=== PATIENT | male | born 1935 | race Caucasian/White ===

== ENCOUNTER → 2017-03-19 | Outpatient (CLI) | payer MEDICARE, OTHER ==
[~2017-03-19] MED LIST: ACET-3088 PO; AMLO5TAB2 PO; CALC1TAB PO; CHOL20002 PO; DIPH25TA56 PO; MULT-806 PO; PRED5TAB PO; RANI-197 PO; SIMV10TA76 PO; SOTA80TA PO; TAMS0.4C47 PO; TRAM50TA4 PO
== END ==
LOC: LAB 09:31
PROVIDERS: ATTEND Urology
DX: C61 Malignant neoplasm of prostate (principal)
CPT/HCPCS: 36415; 84403

== ENCOUNTER → 2017-06-07 18:47 | Observation (INO) ==
[2017-06-05] MEDS: D5NS 1,000 ML IV SCH (13:29)
[2017-06-05] MEDS: TRAMADOL 50 MG TABLET PO SCH ×3 (16:26→22:31)
[2017-06-05] MEDS: MIRABEGRON 25mg TABLET PO SCH (19:54)
[2017-06-05] MEDS: HYDROMORPHONE 2 MG/ML INJECTION IVP PRN (20:26)
[2017-06-05] MEDS: RANITIDINE 150 MG TABLET PO SCH (21:00)
[2017-06-05] MEDS: POM TAMSULOSIN 0.4 MG CAPSULE PO SCH (22:00)
[2017-06-06] MEDS: HYDROMORPHONE 2 MG/ML INJECTION IVP PRN ×5 (01:10→20:34)
[2017-06-06] MEDS: TRAMADOL 50 MG TABLET PO SCH ×5 (03:00→20:35)
[2017-06-06] MEDS: SOTALOL 80 MG PO SCH ×2 (06:30→17:37)
[2017-06-06] MEDS: DIPHENHYDRAMINE 25 MG PO SCH ×3 (07:02→23:50)
[2017-06-06] MEDS: D5NS 1,000 ML IV SCH ×2 (08:41→21:50)
[2017-06-06] MEDS: MIRABEGRON 25mg TABLET PO SCH (09:49)
[2017-06-06] MEDS: MULTI-VITAMIN PLAIN TABLET PO SCH (09:49)
[2017-06-06] MEDS: POM PredniSONE 5 MG TABLET PO SCH (09:51)
[2017-06-06] MEDS: VIT D PO SCH (09:51)
[2017-06-06] MEDS: CALCIUM PO SCH (09:51)
[2017-06-06] MEDS: CHOLECALCIFEROL 5000 UNIT PO SCH (09:51)
[2017-06-06] MEDS: RANITIDINE 150 MG TABLET PO SCH ×2 (09:53→20:35)
[2017-06-06] MEDS: CYANOCOBALAMIN (B-12) 1,000mcg/ml INJECTION IM SCH (09:57)
--- NOTE | 2017-06-06 13:29 | Internal Med History&Physical ---
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 He was seen at the oncologist office for evaluation and found to be quite lethargic with severe bone pain. At that point Dr. Stewart contacted me to admit the patient for blood transfusion and pain control. The patient was agreeable so we made him a direct admit for 23 hour observation. He was complaining of presyncope symptoms and significant lower abdominal pain as well as pain in the pelvic girdle and femurs as well as lumbar spine. Review of Systems - Constitutional Constitutional: Present: anorexia, daytime sleepiness, fatigue, lethargy, malaise, weakness, weight loss - EENMT Eyes: Present: requires corrective lenses Ears: Absent: ear discharge, ear pain Nose: Absent: change in smell Mouth/Throat: Absent: pain, sore throat, changes in swallowing, painful swallowing - Cardiovascular Cardiovascular: Present: dyspnea on exertion. Absent: chest pain, palpitations Vascular: Absent: Raynaud's, atrophy, intermittent claudication, pedal edema - Respiratory Respiratory: Present: dyspnea, dyspnea on exertion. Absent: cough - Gastrointestinal Gastrointestinal: Present: abdominal pain, early satiety. Absent: diarrhea, dysphagia, hematemesis, hematochezia, melena - Genitourinary Genitourinary: Present: difficulty urinating, dysuria, hematuria, urinary urgency - Musculoskeletal Musculoskeletal: Present: arthralgias Musculoskeletal Comments: Severe bone pain - Integumentary/Breasts Integumentary: Present: other (pale). Absent: change in pigmentation, changing lesions, erythema, pruritus - Neurological Neurological: Present: abnormal gait, weakness - Psychiatric Psychiatric: Absent: depression, hopelessness, panic attacks, visual hallucinations - Endocrine Endocrine: Present: cold intolerance. Absent: palpitations, polydipsia, polyphagia - Hematologic/Lymphatic Hematologic/Lymphatic: Present: easy bleeding. Absent: lymphadenopathy - Allergic/Immunologic Allergic/Immunologic: Absent: tongue swelling, itchy eyes, seasonal rhinorrhea [facility] Patient Stated Medical History Cataracts Yes: SURGERY Cardiac Arrhythmia Yes Coronary Artery Disease Yes: HTN Myocardial Infarction Yes Other Cardiology Yes: STENT Other Yes: PROBABLY BLADDER SPASMS Anemia Yes Other Musculoskeletal Yes: POLYARTHRITIS Blood Transfusions Yes Chemotherapy Yes Surgical History: Parul 01/2007, Prostatectomy 01/10 Family History: HTN, Hyperlipidemia, CAD - Social History Smoking status: Never smoker Substance use type: does not use Alcohol intake: never Alcohol intake frequency: does not drink Housing: house Household members: spouse Current occupational status: retired Current residence: Apartment/Private Home Medications Home Medications Medication Instructions Recorded Confirmed Type Multivitamins (Multivitamin) 1 tab PO DAILY #0 01/14/13 06/05/17 History diphenhydrAMINE HCl [Benadryl 25 mg PO BID #0 01/14/13 06/05/17 History Allergy] raNITIdine HCl [Ranitidine HCl] 150 mg PO BID #0 01/14/13 06/05/17 History Acetaminophen [Tylenol Arthritis] 1 tab PO Q6H PRN #0 tab 10/24/16 06/05/17 History Calcium Carbonate/Vitamin D3 600 tab PO DAILY #0 10/24/16 06/05/17 History [Caltrate 600 Plus D3 Tablet] Cholecalciferol (Vitamin D3) 5,000 unit PO DAILY #0 10/24/16 06/05/17 History [Vitamin D3] Sotalol HCl [Sotalol] 80 mg PO ACBID #0 tab 10/24/16 06/05/17 History Tamsulosin HCl 0.4 mg PO HS #0 cap 10/24/16 06/05/17 History Tramadol HCl 50 mg PO Q6HR #0 tab 10/24/16 06/05/17 History predniSONE [Prednisone] 5 mg PO BIDWM #0 tab 10/24/16 06/05/17 History Cyanocobalamin (B-12) [Vit. B-12] 1,000 mcg IM Q1D 06/05/17 06/05/17 History Allergies Allergy/AdvReac Type Severity Reaction Status Date / Time No Known Allergies Allergy Verified 06/05/17 13:07 Exam Vital signs: Temperature 98.9 F 06/06/17 07:35 Pulse Rate 114 H 06/06/17 07:35 Respiratory Rate 18 06/06/17 07:35 Blood Pressure 110/65 06/06/17 07:35 Pulse Oximetry 100 06/06/17 07:35 Oxygen Delivery Method Room Air - Constitutional moderate distress - Routine HEENT Exam Head: Present: normocephalic, atraumatic Eye: Present: EOMI, PERRL. Absent: conjunctival icterus, scleral injection, conjunctivae pink (pale) ENT: Present: mucous membranes dry, oropharynx clear. Absent: sinus tenderness Nose: dry mucous membranes Throat: normal inspection - Routine Neck Exam Present: supple, full ROM. Absent: JVD, carotid bruit, lymphadenopathy, thyromegaly, tenderness - Routine Chest/Breast/Axilla Exam Chest wall: Absent: tenderness Axillae: Absent: lymphadenopathy - Routine Respiratory Exam Present: decreased breath sounds, distant breath sounds. Absent: accessory muscle use - Routine Cardiovascular Exam Present: RRR, no murmur. Absent: S3, S4 - Routine Abdominal Exam Present: soft, normoactive bowel sounds, tenderness. Absent: distended, rebound , guarding, rigid - Routine Exam Penile: Absent: swelling, erythema, lesions - Routine Extremities Exam Present: edema (ight leg). Absent: cyanosis, clubbing - Routine Neurological Exam Present: oriented X3, CN II-XII intact, moving all extremities. Absent: alert, nystagmus, tremors - Routine Psychiatric Exam Present: normal affect, normal thought process, cooperative, good insight, good judgment. Absent: depressed, anxious, agitated Internal Medicine Results - Labs CBC & Chem 7: 06/06/17 04:58 06/06/17 04:58 Labs: Short CBC 06/05/17 06/06/17 Range/Units 23:20 04:58 WBC 3.6 L (4.5-11.0) T/MM3 Hgb 9.8 L D 9.6 L (13.5-17.5) GM/DL Hct 30.5 L D (41-53) % Plt Count 106 L (130-400) T/MM3 [facility] 06/06/17 04:58 Sodium 133 L Potassium 5.3 H Chloride 102 Carbon Dioxide 24 BUN 27.0 H Creatinine 1.0 Glucose 119 H Calcium 6.2 L Liver Function 06/06/17 Range/Units 04:58 Total Bilirubin 0.70 (0.20-1.30) MG/DL AST 60 H (17-59) U/L ALT 27 (21-72) U/L Alkaline Phosphatase 712 H (38-126) U/L Albumin 2.7 L (3.5-5.0) G/DL Hgb = 9.6 after transfusion Assessment and Plan (1) Pain from bone metastases Current visit: Yes Status: Acute Narcotics given (2) Prostate cancer metastatic to bone Current visit: Yes Status: Acute (3) Severe anemia Current visit: Yes Status: Acute Transfusion Sepsis Assessment - Evaluation Sepsis screening result: No Definite Risk
[2017-06-06] MEDS: ACETAMINOPHEN 650 MG PO PRN (14:51)
--- NOTE | 2017-06-06 15:50 | Consultation ---
UROLOGY CONSULTATION DATE OF CONSULTATION 06/06/2017 REASON FOR CONSULTATION Difficult catheter placement, urinary retention. PHYSICIAN REQUESTING CONSULT Efra Sharp DO HISTORY Mr. Goncalves is an 82-year-old gentleman whom I have known for over a year who presented with advanced prostate cancer and became castrate-resistant prostate cancer. He failed Zytiga and then . He went on to _?Taxotere? chemotherapy and he has failed this. He has come off the chemotherapy 3-4 weeks ago. He has had intermittent hematuria in the past from the prostate cancer. Recently has had difficulty voiding and his who is a retired nurse , catheterized him at home with a #10 [place] catheter. He was admitted to the hospital for dehydration and weakness. They tried to pass a catheter and were unable to and he is unable to void. PAST MEDICAL HISTORY Metastatic hormone refractory prostate cancer. MEDICATIONS/ALLERGIES/FAMILY HISTORY/SOCIAL HISTORY All reviewed from the H&P and the medical record. REVIEW OF SYSTEMS Notable for fatigue, weakness, hematuria, difficulty voiding. PHYSICAL EXAM VITAL SIGNS: Noted on the electronic medical record. HEENT: Normocephalic. GENERAL: Alert, pleasant male. He appears fatigued. PULMONARY: Nonlabored respirations. CARDIOVASCULAR: Regular rate. ABDOMEN: Soft but he is tender in the suprapubic region. : His phallus is uncircumcised. Meatus is normal. Testes descended and soft. EXTREMITIES: No clubbing or cyanosis. SKIN: No rashes. PSYCH; Normal mood and affect. PROCEDURE I prepped his genitalia with Betadine. I instilled some lubricant per urethra. I am able to negotiate a #18 [place] catheter. I met mild to moderate resistance of the prostate and so with him relaxing and gentle pressure, I am able to negotiate through the firm prostate. I had to flush to initially get it to drain, then it begins draining old bloody urine. It is set to gravity drainage and a few hundred mL began to drain with some small clots. ASSESSMENT 1. 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 2. Gross hematuria. 3. Urinary retention. PLAN At this point, he has failed multiple therapies and his disease continues to progress. I think it is likely that his retention will be permanent. As he is becoming more debilitated I think it is most reasonable to just leave the catheter in place and change it on a monthly basis. YOSEPH
--- NOTE | 2017-06-06 18:32 | Internal Med Progress Note ---
Internal Medicine Subjective Patient seen and examined. Transfusion received. He is feeling some better, yet still lightheaded and lethargic. Nursing was unable to place bass this morning so Dr. Rosa was consulted. Catheter was placed without complication. Post transfusion Hgb = 8.2. He has dark blood in the bass urine bag. Exam Vital Signs: Temperature 96.7 F L 06/06/17 15:35 Pulse Rate 83 06/06/17 17:37 Respiratory Rate 16 06/06/17 15:35 Blood Pressure 94/58 06/06/17 17:30 Pulse Oximetry 97 06/06/17 15:35 Oxygen Delivery Method Room Air Height: 6 ft Weight: 62.7 kg Body Mass Index: 18.6 - Constitutional Present: mild distress - Routine HEENT Exam Head: Present: normocephalic, atraumatic Eye: Present: EOMI, PERRL, conjunctivae pink. Absent: conjunctival icterus, scleral injection ENT: Present: mucous membranes dry, oropharynx clear, nares patent - Routine Neck Exam Present: supple, full ROM. Absent: JVD, carotid bruit, lymphadenopathy, thyromegaly - Routine Respiratory Exam Absent: accessory muscle use, dyspnea, rales, respiratory distress, rhonchi, stridor, wheezes - Routine Cardiovascular Exam Present: RRR. Absent: S3, S4 - Routine Abdominal Exam Present: soft, tenderness (suprapubic). Absent: distended, guarding, rigid - Routine Extremities Exam Present: edema. Absent: cyanosis, clubbing, calf tenderness - Routine Skin Exam Present: intact. Absent: cyanosis, erythema, mottling, petechiae, urticaria, jaundice - Routine Neurological Exam Present: oriented X3, CN II-XII intact, moving all extremities. Absent: alert - Routine Psychiatric Exam Present: cooperative, good judgment. Absent: normal affect (lethargic) Internal Medicine Results - Labs CBC & Chem 7: 06/06/17 17:57 06/06/17 04:58 Labs: Short CBC 06/05/17 06/06/17 06/06/17 Range/Units 23:20 04:58 17:57 WBC 3.6 L 5.5 D (4.5-11.0) T/MM3 Hgb 9.8 L D 9.6 L 8.2 L D (13.5-17.5) GM/DL Hct 30.5 L D 26.0 L D (41-53) % Plt Count 106 L 82 L (130-400) T/MM3 BMP 06/06/17 04:58 Sodium 133 L Potassium 5.3 H Chloride 102 Carbon Dioxide 24 BUN 27.0 H Creatinine 1.0 Glucose 119 H Calcium 6.2 L Liver Function 06/06/17 Range/Units 04:58 Total Bilirubin 0.70 (0.20-1.30) MG/DL AST 60 H (17-59) U/L ALT 27 (21-72) U/L Alkaline Phosphatase 712 H (38-126) U/L Albumin 2.7 L (3.5-5.0) G/DL Progress Note-A&P (1) Pain from bone metastases Status: Acute Current Visit: Yes (2) Prostate cancer metastatic to bone Status: Acute Current Visit: Yes (3) Severe anemia Status: Acute Assessment and plan: He has received 2 units PRBCs. I will transfuse 2 more units tonight with the hopes of DC to home tomorrow. Current Visit: Yes (4) Hypotensive episode Status: Acute Current Visit: Yes - Time Spent With Patient Total time spent is greater than 50% in coordination of care (as documented) at patient's floor/unit and/or counseling patient: 25 - 35 minutes Sepsis Assessment - Evaluation Sepsis screening result: No Definite Risk Hospital Course Summary Disclaimer: The visit summary below is not to be considered part of the above Progress Note. Hospital Course: 06/06/17 18:36 Patient has symptomatic anemia and metastatic bone pain secondary to prostate ca.
[2017-06-06 18:43] VITALS: BMI 18.7
[2017-06-06] MEDS: POM TAMSULOSIN 0.4 MG CAPSULE PO SCH (22:00)
[2017-06-07] MEDS: HYDROMORPHONE 2 MG/ML INJECTION IVP PRN ×3 (00:57→12:10)
[2017-06-07] MEDS: TRAMADOL 50 MG TABLET PO SCH ×3 (03:05→16:03)
[2017-06-07] MEDS: ACETAMINOPHEN 650 MG PO PRN (04:05)
[2017-06-07] MEDS: D5NS 1,000 ML IV SCH (06:04)
[2017-06-07] MEDS: SOTALOL 80 MG PO SCH ×2 (07:31→16:55)
[2017-06-07] MEDS: MIRABEGRON 25mg TABLET PO SCH (09:22)
[2017-06-07] MEDS: RANITIDINE 150 MG TABLET PO SCH (09:22)
[2017-06-07] MEDS: MULTI-VITAMIN PLAIN TABLET PO SCH (09:22)
[2017-06-07] MEDS: CHOLECALCIFEROL 5000 UNIT PO SCH (09:23)
[2017-06-07] MEDS: VIT D PO SCH (09:24)
[2017-06-07] MEDS: CALCIUM PO SCH (09:24)
[2017-06-07] MEDS: DIPHENHYDRAMINE 25 MG PO SCH (09:24)
[2017-06-07] MEDS: POM PredniSONE 5 MG TABLET PO SCH (09:26)
[2017-06-07] MEDS: CYANOCOBALAMIN (B-12) 1,000mcg/ml INJECTION IM SCH (10:36)
[2017-06-07 15:24] VITALS: BP 108/65; RESP 16; TEMP 96.8; O2SAT 98
[2017-06-07 16:56] VITALS: PULSE 82
--- NOTE | 2017-06-07 17:43 | Discharge Instructions ---
Discharge Plan - Med Rec/Dispo Andres Instructions: Dehydration (GEN) Prescriptions: New Mirabegron [Myrbetriq] 50 mg PO DAILY #30 tablet Continue Multivitamins (Multivitamin) 1 tab PO DAILY #0 Calcium Carbonate/Vitamin D3 [Caltrate 600 Plus D3 Tablet] 600 tab PO DAILY # 0 Tramadol HCl 50 mg PO Q6HR #0 tab Acetaminophen [Tylenol Arthritis] 1 tab PO Q6H PRN #0 tab PRN Reason: PAIN predniSONE [Prednisone] 5 mg PO BIDWM #0 tab Cyanocobalamin (B-12) [Vit. B-12] 1,000 mcg IM Q1D raNITIdine HCl [Ranitidine HCl] 150 mg PO BID #0 diphenhydrAMINE HCl [Benadryl Allergy] 25 mg PO BID #0 Tamsulosin HCl 0.4 mg PO HS #0 cap Cholecalciferol (Vitamin D3) [Vitamin D3] 5,000 unit PO DAILY #0 Sotalol HCl [Sotalol] 80 mg PO ACBID #0 tab - Disposition 01 Discharged Home, Self-Care
--- NOTE | 2017-06-07 17:47 | Discharge Summary ---
Discharge Information Date of admission: 06/05/17 11:27 Attending Physician: Efra Sharp DO Primary care physician: Efra Sharp DO Consults: 06/05/17 11:55 Physician Consult [CONS] Routine Consulting Provider: Kit Stewart Reason For Exam: metastatic prostate cancer Ordering Provider has Notified Investigator Vice: Yes 06/05/17 12:10 Dietary Consult [CONS] Routine Comment: Reason For Exam: 06/06/17 07:19 Physician Consult [CONS] Routine Consulting Provider: Mac Rosa Reason For Exam: bass placement Ordering Provider has Notified Investigator Vice: No 06/06/17 08:32 W[facility] Consult [CONS] Routine - Discharge Diagnosis (1) Pain from bone metastases Status: Acute (2) Prostate cancer metastatic to bone Status: Chronic (3) Severe anemia Status: Acute (4) Hypotensive episode Status: Acute - Laboratory Labs: 06/07/17 05:40 06/06/17 04:58 History of Present Illness HPI: Heath is a very pleasant 82-year-old white male who is well-known to me through our practice at [facility]. He was seen at the oncologist office for evaluation and found to be quite lethargic with severe bone pain. At that point Dr. Stewart contacted me to admit the patient for blood transfusion and pain control. The patient was agreeable so we made him a direct admit for 23 hour observation. He was complaining of presyncope symptoms and significant lower abdominal pain as well as pain in the pelvic girdle and femurs as well as lumbar spine. Hospital Course This is a general summary of the patient's hospital course. For more details refer to the complete medical record. Hospital course: 06/06/17 18:36 Patient has symptomatic anemia and metastatic bone pain secondary to prostate ca. 06/07/17 Heath was given a total of 4 units of packed red blood cells leuko-reduced and irradiated. His blood pressure is better at this time. His bone pain is better controlled with a higher dose of Dilaudid. He even has a little more appetite. I am going to send him home with his Bass catheter intact. He has a follow-up appointment with urology, Dr. Rosa, on Saturday. He is stable for discharge. Questions answered. Time spent with patient: 25 - 35 minutes DVT Prophylaxis: SCD's GI Prophylaxis: other Discharge Plan - Med Rec/Dispo Andres Instructions: Dehydration (GEN) Prescriptions: New Mirabegron [Myrbetriq] 50 mg PO DAILY #30 tablet Continue Multivitamins (Multivitamin) 1 tab PO DAILY #0 Calcium Carbonate/Vitamin D3 [Caltrate 600 Plus D3 Tablet] 600 tab PO DAILY # 0 Tramadol HCl 50 mg PO Q6HR #0 tab Acetaminophen [Tylenol Arthritis] 1 tab PO Q6H PRN #0 tab PRN Reason: PAIN predniSONE [Prednisone] 5 mg PO BIDWM #0 tab Cyanocobalamin (B-12) [Vit. B-12] 1,000 mcg IM Q1D raNITIdine HCl [Ranitidine HCl] 150 mg PO BID #0 diphenhydrAMINE HCl [Benadryl Allergy] 25 mg PO BID #0 Tamsulosin HCl 0.4 mg PO HS #0 cap Cholecalciferol (Vitamin D3) [Vitamin D3] 5,000 unit PO DAILY #0 Sotalol HCl [Sotalol] 80 mg PO ACBID #0 tab - Disposition 01 Discharged Home, Self-Care
[~2017-06-07 18:47] MED LIST changes: -ACET-3088 PO; +ACETAMINOPHEN 325 MG TABLET PO ONE; -AMLO5TAB2 PO; -CALC1TAB PO; +CALCIUM CARBONATE 600 MG TABLET PO SCH; -CHOL20002 PO; -DIPH25TA56 PO; +DiphenhydrAMINE 25 MG CAPSULE PO ONE; -MULT-806 PO; -PRED5TAB PO; -RANI-197 PO; -SIMV10TA76 PO; -SOTA80TA PO; -TAMS0.4C47 PO; -TRAM50TA4 PO
== END | disposition home or self-care (01) ==
LOC: MED
PROVIDERS: ADMIT Internal Medicine; ATTEND Internal Medicine